=== PATIENT | male | born 1975 | race Caucasian/White ===

== ENCOUNTER 2023-05-18 07:26 | Day surgery (SDC) | payer OTHER, SELFPAY ==
[2023-05-18] MEDS: LACTATED RINGERS 1,000 ML 42 ML IV ×2 (07:38→08:05)
--- NOTE | 2023-05-18 08:01 | PM.HP.1 ---
History of Present Illness History of Present Illness Date Patient Seen: 05/18/23 Time Patient Seen: 08:01 Chief complaint: SDC Narrative: I reviewed my recent office note. No significant changes. He is not had any leakage however since our discussion. Meds Home Medications and Allergies Home Medications Medication Instructions Recorded Confirmed Type fluoxetine 20 mg capsule 20 mg PO DAILY 05/18/23 05/18/23 History Allergies Allergy/AdvReac Type Severity Reaction Status Date / Time No Known Drug Allergies Allergy Verified 05/18/23 07:37 Exam Const General: cooperative HENMT Head: normal to inspection Eyes General: appearance normal, both eyes and all related structures Neck Neck: normal visual inspection Chest Chest: normal inspection of the chest Resp Effort & Inspection: normal respiratory effort Cardio Rate: regular rate GI Inspection: normal to inspection Skin General: no rashes or lesions noted Neuro General: patient alert and patient awake Extrem General: normal to inspection and no pedal edema Psych Appearance: grossly normal Assessment & Plan Assessment & Plan narrative: 47-year-old male indicated for colon cancer screening. Colonoscopy is pursued today.
--- NOTE | 2023-05-18 08:02 | PM.PREOP ---
Pre-operative Note Interval Note History & Physical reviewed/Exam performed by Physician: Yes Changes to H&P: No ASA Class (for procedural sedation): I
--- NOTE | 2023-05-18 08:57 | PM.OP.COLON ---
Operative Date/Time/Diagnoses Date of procedure: 05/18/23 Time of procedure: 08:57 Pre-op diagnosis: Colon cancer screening. Family history of colon polyps in his dad. Post-op diagnosis: same Procedure & Clinicians Study performed: Colonoscopy Same procedure as scheduled: Yes Indications: Colon cancer screening family history of colon polyps in his dad. Surgeon: Gilmar Locke Procedure Notes SCOAP/Timeout: Done Procedure in detail: After the risks and benefits were explained, written and verbal informed consent was obtained. The patient was brought into the procedure room and placed into the left lateral decubitus position. Please see anesthesia notes for sedation details. Digital rectal examination was accomplished. The scope was introduced into the patient and advanced under direct visualization to the cecum as identified by the appendiceal orifice and ileocecal valve. The scope was slowly withdrawn to carefully examine the mucosa for any defects or lesions. Comprehensive imaging was accomplished throughout the rectum including the dentate line. The colon was decompressed, the scope was then removed from the patient who tolerated the procedure well. Pediatric colonoscope bowel prep adequate Scope withdrawal time: 10 minutes Sedation minutes: 17 Specimen(s): none sent Complications: none Impression: Patient had a fairly redundant colon. Some mild abdominal pressure was required for navigation purposes. I did not see any significant polyps or mass lesions throughout. Mild internal grade 1 to grade 2 hemorrhoids. Endoscopic diagnosis 1. Grade 1-2 internal hemorrhoids 2. Mildly redundant colon Post-procedure Plan for aftercare: 1. Titrate fiber to the desired stool consistency and frequency. 2. Repeat colonoscopy for colon cancer screening 10 years. Disposition: PACU
[2023-05-18 08:59] VITALS: BP 113/68; PULSE 61; RESP 12; TEMP 36.6; O2SAT 97
[2023-05-18 09:04] VITALS: BP 121/77; PULSE 66; RESP 15; O2SAT 100
[2023-05-18 09:09] VITALS: BP 124/83; PULSE 60; RESP 16; O2SAT 100
[2023-05-18 09:14] VITALS: BP 122/84; PULSE 71; RESP 12; O2SAT 100
[2023-05-18 09:15] VITALS: BP 125/86; PULSE 67; RESP 14; TEMP 36.6; O2SAT 100
== END 2023-05-18 09:30 | disposition home or self-care (01) ==
PROVIDERS: Referring Provider Internal Medicine Gastroenterology; Visit Provider Internal Medicine Gastroenterology
PROC: 0DJD8ZZ Inspection of Lower Intestinal Tract, Via Natural or Artificial Opening Endoscopic (ICD-10-PCS; CPT 45378; principal; 2023-05-18 08:30)
DX: Z12.11 Encounter for screening for malignant neoplasm of colon (principal); Z83.719 Family history of colon polyps, unspecified; K64.1 Second degree hemorrhoids
CPT/HCPCS: 45378; J2704

== ENCOUNTER → 2024-10-06 15:15 | Outpatient (CLI) | payer OTHER, SELFPAY ==
--- NOTE | 2024-10-06 15:18 | DI.US.S_ITS ---
PROCEDURE: US ABDOMEN LIMITED INDICATIONS: CONFIRM FATTY LIVER,EVAL FOR SIGNS OF CIRRHOSIS TECHNIQUE: Real-time focused scanning was performed of the abdomen, with image documentation. COMPARISON: None. FINDINGS: Liver parenchyma is mildly diffusely hyperechoic. Homogeneous echotexture without coarsening or discrete mass. The visible portions of the liver capsule are smooth. Appropriate direction of flow in the main portal vein. The gallbladder is normal without stones, sludge, wall thickening, or pericholecystic fluid. The common duct is normal caliber at 5 mm. The proximal portion of the pancreas appears normal. Distal portion is not well seen due to bowel gas. No free fluid in the right upper quadrant. IMPRESSION: Mild hepatic steatosis or other intrinsic liver disease. No sonographic signs of hepatic cirrhosis. Dictated by: Marilia Lagos M.D. on 10/07/2024 at 14:08 Approved by: Marilia Lagos M.D. on 10/07/2024 at 14:11
== END ==
PROVIDERS: PCP Internal Medicine; Referring Provider Internal Medicine; Visit Provider Internal Medicine
DX: Z01.89 Encounter for other specified special examinations (principal); K76.0 Fatty (change of) liver, not elsewhere classified
CPT/HCPCS: 76705